=== PATIENT | female | born 1950 | race Caucasian/White ===

== ENCOUNTER 2018-09-12 18:06 | Emergency (ER) | payer MEDICARE, BC ==
--- NOTE | 2018-09-12 18:48 | EDM.PDOC ---
ED HPI GENERAL MEDICAL PROBLEM - General Chief Complaint: ENT Problem Stated Complaint: CHOKED ON STEAK, POSSIBLY STUCK Time Seen by Provider: 09/12/18 18:30 Source of Information: Reports: Patient, RN Notes Reviewed History Limitations: Reports: No Limitations - History of Present Illness INITIAL COMMENTS - FREE TEXT/NARRATIVE: Patient is a 68 her old female who presents to the ED for the evaluation of esophageal pain after choking on a piece of steak. The patient was eating steak roughly 45 minutes ago, and ended up choking on the piece of steak. She states that her did do the Heimlich maneuver and was able to get the food impaction bolus out, but EMS personnel recommended that she come to the ER for evaluation of a possible esophageal tear. The patient states that this is happen only once before. She states that there feels as if something is in her throat and was not able to drink. The patient denies any nausea or vomiting. Her primary care provider is Scott Rodriguez. Throat Pain Score (Numeric/FACES): 2 - Related Data Allergies Allergy/AdvReac Type Severity Reaction Status Date / Time cephalexin [From Keflex] Allergy Mild Diarrhea Verified 09/12/18 18:14 heparin Allergy Syncope Verified 09/12/18 18:14 Past Medical History HEENT History: Reports: Impaired Vision Dermatologic History: Reports: Eczema Social & Family History - Family History Family Medical History: Noncontributory - Tobacco Use Smoking Status *Q: Former Smoker Used Tobacco, but Quit: Yes Month/Year Tobacco Last Used: 11/2013 ED ROS ENT - Review of Systems Review Of Systems: See Below Constitutional: Reports: No Symptoms HEENT: Reports: Other (difficulty swallowing/pain with swallowing) Respiratory: Reports: No Symptoms Cardiovascular: Reports: No Symptoms Endocrine: Reports: No Symptoms GI/Abdominal: Reports: No Symptoms : Reports: No Symptoms Musculoskeletal: Reports: No Symptoms Skin: Reports: No Symptoms Neurological: Reports: No Symptoms Psychiatric: Reports: No Symptoms Hematologic/Lymphatic: Reports: No Symptoms Immunologic: Reports: No Symptoms ED EXAM, ENT - Physical Exam Exam: See Below Exam Limited By: No Limitations General Appearance: Alert, WD/WN, No Apparent Distress Mouth/Throat: Normal Inspection, Normal Gums, Normal Lips, Normal Oropharynx, Normal Teeth Head: Atraumatic, Normocephalic Neck: Normal Inspection, Supple, Non-Tender, Full Range of Motion Respiratory/Chest: No Respiratory Distress, Lungs Clear, Normal Breath Sounds, No Accessory Muscle Use, Chest Non-Tender Cardiovascular: Normal Peripheral Pulses, Regular Rate, Rhythm, No Murmur GI/Abdominal: Normal Bowel Sounds, Soft, Non-Tender, No Distention, No Mass Extremities: Normal Inspection, Normal Capillary Refill Neurological: Alert, Oriented, Normal Cognition, No Motor/Sensory Deficits Psychiatric: Normal Affect, Normal Mood Skin: Warm, Dry, Intact, Normal Color, No Rash Course - Vital Signs Last Recorded V/S: Last Vital Signs Temp 97.8 F 09/12/18 18:14 Pulse 59 L 09/12/18 18:14 Resp 16 09/12/18 18:14 BP 138/71 09/12/18 18:14 Pulse Ox 95 09/12/18 18:14 - Re-Assessments/Exams Free Text/Narrative Re-Assessment/Exam: 09/12/18 18:44 Patient presents to the ED for evaluation of throat pain after choking on a piece of steak. The patient does not have a food impaction bolus currently present in her throat. But she was having residual sore throat pain, and was worried about esophageal tear. The patient was given water at bedside, and is able to tolerate this okay with very little amount of pain. She states there is some soreness, this is to be expected. Patient will be discharged home with general recommendations for follow-up with primary care provider for an upper GI. Departure - Departure Time of Disposition: 18:45 Disposition: Home, Self-Care 01 Condition: Fair Clinical Impression: Esophageal pain - Discharge Information *PRESCRIPTION DRUG MONITORING PROGRAM REVIEWED*: No *COPY OF PRESCRIPTION DRUG MONITORING REPORT IN PATIENT [place]: No Instructions: Upper Gastrointestinal Series, [id number] Referrals: Scott Ellison MD [Primary Care Provider] - Additional Instructions: You have been evaluated in the ED today for your esophageal pain after an episode of choking. Your exam did not demonstrate any sort of food impaction in your throat currently, and you were able to tolerate drinking oral fluids okay. Recommend that you follow up with your primary care provider for a possible EGD to see why you are having increased issues with food being caught in your throat. Please remember to cut your food into very small pieces and chew thoroughly before swallowing. And drink an appropriate amount of liquid with each bite. Please return to the ED if your symptoms should change or worsen
[2018-09-12] MEDS ORDERED: traMADol 50 MG Tab PO ONE (19:16)
== END 2018-09-12 19:09 | disposition home or self-care (01) ==
LOC: JD.ED 18:06
DX: K22.8 Other specified diseases of esophagus (principal); R07.0 Pain in throat; Z87.891 Personal history of nicotine dependence; Z88.1 Allergy status to other antibiotic agents
CPT/HCPCS: 99282; 99283